=== PATIENT | male | born 1985 | race Caucasian/White ===

== ENCOUNTER 2021-12-22 10:06 | Emergency (ER) | payer MEDICAID ==
[~2021-12-22] VITALS: Ht 170.2 cm; Wt 93.1 kg
[2021-12-22 10:07] VITALS: BP 133/80
[2021-12-22] MEDS ORDERED: LISI20TA33 PO (10:19)
[2021-12-22 13:20] LABS: GC DNA AMPLIFICATION NEGATIVE (NEGATIVE)
== END 2021-12-22 13:01 | disposition home or self-care (01) ==
LOC: M ED 10:06
DX: N50.812 Left testicular pain (principal); I10 Essential (primary) hypertension; Z88.1 Allergy status to other antibiotic agents

== ENCOUNTER 2023-07-06 14:39 | Emergency (ER) | payer OTHER ==
[~2023-07-06] VITALS: Ht 172.7 cm; Wt 100.0 kg
[~2023-07-06 14:39] MED LIST: LISI20TA33 PO
[2023-07-06] MEDS ORDERED: BOOSTRIX VACCINE (TETANUS/DIPHTH/ACEL. PERTUSSIS) 0.5ML SYR IM.IMMUN ONE (15:20)
[2023-07-06] MEDS ORDERED: MED REC IN PROGRESS XX SCH (16:25)
[2023-07-06] MEDS ORDERED: LISI20TA33 PO (16:26)
[2023-07-06 16:33] LABS: HEMOGLOBIN 16.4 g/dl (13.5-17.5); MEAN CORPUSCULAR HEMOGLOBIN 32.4 pg (27.0-33.0); MEAN CORPUSCULAR HGB CONC 34.9 g/dl (32.0-36.5); MEAN CORPUSCULAR VOLUME 92.9 fl (80.0-96.0); PLATELET COUNT, AUTOMATED 392 10^3/uL (150-450); RED BLOOD COUNT 5.06 10^6/uL (4.30-6.10); WHITE BLOOD COUNT 7.1 10^3/uL (4.0-10.0)
[2023-07-06] MEDS ORDERED: HOME MED LIST COMPLETE! XX SCH (16:35)
[2023-07-06 16:56] LABS: AMPHETAMINES LEVEL URINE NEGATIVE (NEGATIVE); BARBITURATES URINE NEGATIVE (NEGATIVE); BENZODIAZEPINES URINE NEGATIVE (NEGATIVE)
[2023-07-06 16:57] LABS: CANNABINOIDS URINE NEGATIVE (NEGATIVE); COCAINE METABOLITE URINE NEGATIVE (NEGATIVE); METHADONE URINE NEGATIVE (NEGATIVE); OPIATES URINE NEGATIVE (NEGATIVE); PHENCYCLIDINE URINE NEGATIVE (NEGATIVE)
[2023-07-06 17:00] LABS: ETHYL ALCOHOL (ETHANOL) 0.277 % (0.000-0.010)
[2023-07-06 17:01] LABS: SALICYLATE LEVEL < 3.0 MG/DL (<30)
[2023-07-06 17:02] LABS: ALBUMIN 4.5 G/DL (3.2-5.2); ALKALINE PHOSPHATASE 69 U/L (46-116); ALT/SGPT 64 U/L (7.0-40); AST/SGOT 39 U/L (<34); BILIRUBIN,DIRECT 0.1 MG/DL (<0.4); BILIRUBIN,TOTAL 0.3 MG/DL (0.3-1.2); BLOOD UREA NITROGEN 8 MG/DL (9-23); CALCIUM LEVEL 9.7 MG/DL (8.5-10.1); CARBON DIOXIDE LEVEL 22 MMOL/L (20-31); CHLORIDE LEVEL 101 MMOL/L (98-107); GLOMERULAR FILTRATION RATE > 60.0 (>60); GLUCOSE, FASTING 98 MG/DL (60-100); POTASSIUM SERUM 4.4 MMOL/L (3.5-5.1); SODIUM LEVEL 136 MMOL/L (136-145); TOTAL PROTEIN 7.8 G/DL (5.7-8.2)
[2023-07-06 17:03] LABS: THYROID STIMULATING HORMONE 0.563 uIU/ML (0.55-4.78)
[2023-07-06] MEDS: NICOTINE 21MG/24HR 1 EA TRANSDERMAL TD ONE ×2 (17:05→19:43)
[2023-07-06] MEDS ORDERED: LORazepam 2 MG TAB PO STA (20:39)
[2023-07-06 23:35] VITALS: BP 138/85; TEMP 97.9; O2SAT 100
== END 2023-07-06 23:35 | disposition home or self-care (01) ==
LOC: M ED 14:39
DX: F43.0 Acute stress reaction (principal); F17.210 Nicotine dependence, cigarettes, uncomplicated; F10.10 Alcohol abuse, uncomplicated; Z79.811 Long term (current) use of aromatase inhibitors; Z88.0 Allergy status to penicillin

== ENCOUNTER 2023-07-23 22:55 | Emergency (ER) | payer OTHER ==
[~2023-07-23] VITALS: Ht 172.7 cm; Wt 104.3 kg
[2023-07-23 22:56] VITALS: BP 158/100; TEMP 98.1; O2SAT 97
== END 2023-07-24 00:30 | disposition left against medical advice (07) ==
LOC: M ED 22:55
DX: Z53.21 Procedure and treatment not carried out due to patient leaving prior to being seen by health care provider (principal)

== ENCOUNTER 2024-04-18 12:34 | Emergency (ER) | payer OTHER ==
[~2024-04-18] VITALS: Ht 172.7 cm; Wt 100.0 kg
[2024-04-18 13:32] LABS: BASO % 0.5 % (0.0-1.0); EOS % 0.2 % (0.0-3.0); HEMATOCRIT 41.5 % (42.0-52.0); HEMOGLOBIN 14.4 g/dl (13.5-17.5); LYMPH # 0.8 10^3/uL (1.5-5.0); LYMPH % 12.1 % (24.0-44.0); MEAN CORPUSCULAR HEMOGLOBIN 32.8 pg (27.0-33.0); MEAN CORPUSCULAR HGB CONC 34.7 g/dl (32.0-36.5); MEAN CORPUSCULAR VOLUME 94.5 fl (80.0-96.0); MONO # 0.4 10^3/uL (0.0-0.8); MONO % 6.6 % (2.0-8.0); NEUTROPHILS % 80.1 % (36.0-66.0); PLATELET COUNT, AUTOMATED 300 10^3/uL (150-450); RED BLOOD COUNT 4.39 10^6/uL (4.30-6.10); WHITE BLOOD COUNT 6.2 10^3/uL (4.0-10.0)
[2024-04-18] MEDS: FOLIC ACID 1MG TAB PO SCH (13:36)
[2024-04-18] MEDS: THIAMINE 100 MG TAB PO SCH (13:37)
[2024-04-18] MEDS: MULTIVITAMINS/MINERALS THERAP 1 TAB PO SCH (13:37)
[2024-04-18 14:06] LABS: AMPHETAMINES LEVEL URINE NEGATIVE (NEGATIVE); BARBITURATES URINE NEGATIVE (NEGATIVE); BENZODIAZEPINES URINE NEGATIVE (NEGATIVE); COCAINE METABOLITE URINE NEGATIVE (NEGATIVE); METHADONE URINE NEGATIVE (NEGATIVE); OPIATES URINE NEGATIVE (NEGATIVE)
[2024-04-18 14:07] LABS: CANNABINOIDS URINE POSITIVE (NEGATIVE); PHENCYCLIDINE URINE NEGATIVE (NEGATIVE)
[2024-04-18 14:08] LABS: ETHYL ALCOHOL (ETHANOL) 0.121 % (0.000-0.010)
[2024-04-18 14:09] LABS: CPK CREATINE PHOSPHOKINASE 81 U/L (46-171)
[2024-04-18 14:10] LABS: SALICYLATE LEVEL < 3.0 MG/DL (<30)
[2024-04-18 14:13] LABS: ALBUMIN 4.1 G/DL (3.2-5.2); ALKALINE PHOSPHATASE 72 U/L (46-116); ALT/SGPT 22 U/L (7.0-40); AST/SGOT 10 U/L (<34); BILIRUBIN,DIRECT < 0.1 MG/DL (<0.4); BILIRUBIN,TOTAL 0.2 MG/DL (0.3-1.2); BLOOD UREA NITROGEN 12 MG/DL (9-23); CARBON DIOXIDE LEVEL 26 MMOL/L (20-31); CHLORIDE LEVEL 107 MMOL/L (98-107); CREATININE FOR GFR 0.88 MG/DL (0.70-1.30); GLOMERULAR FILTRATION RATE > 60.0 (>60); GLUCOSE, FASTING 123 MG/DL (60-100); MAGNESIUM LEVEL 2.2 MG/DL (1.8-2.4); SODIUM LEVEL 139 MMOL/L (136-145); THYROID STIMULATING HORMONE 0.265 uIU/ML (0.55-4.78); TOTAL PROTEIN 7.4 G/DL (5.7-8.2)
[2024-04-18] MEDS: LORazepam 2 MG TAB PO PRN (14:24)
[2024-04-18 17:02] VITALS: BP 142/80; TEMP 99.2; O2SAT 98
== END 2024-04-18 17:08 | disposition home or self-care (01) ==
LOC: EDBD 12:34 → M ED 12:34
DX: F10.120 Alcohol abuse with intoxication, uncomplicated (principal); R00.0 Tachycardia, unspecified; F17.290 Nicotine dependence, other tobacco product, uncomplicated; Z88.1 Allergy status to other antibiotic agents